=== PATIENT | female | born 1945 | race Caucasian/White ===

== ENCOUNTER → 2017-05-16 | Outpatient (CLI) | payer MEDICARE, BC | END | disposition home or self-care (01) | LOC: LABPAT 12:40 | PROVIDERS: ATTEND Orthopaedic Surgery | DX: Z01.812 Encounter for preprocedural laboratory examination (principal) | CPT/HCPCS: 87070 ==

== ENCOUNTER 2017-06-09 12:05 | Inpatient (IN) | payer MEDICARE, BC ==
[2017-06-03 09:27] VITALS: BMI 34.9
--- NOTE | 2017-06-08 10:08 | HP ---
HISTORY AND PHYSICAL Surgery is scheduled for 06/09/2017. Elida Michelle is a 71-year-old patient seen with symptomatic right knee osteoarthritis. After we discussed treatment options. She elected to proceed with right total knee arthroplasty. Consent regarding the procedure was obtained. Medical clearance was provided by Dr. Rosas. PAST MEDICAL HISTORY: Hypertension, gastroesophageal reflux disease, asthma. PAST SURGICAL HISTORY: section, left total knee arthroplasty. DAILY MEDICATIONS: Singular, Zantac, aspirin, Effexor, Breo inhaler, metoprolol, sjrc-sbi-pchaiss vitamins. ALLERGIES: CODEINE, LANACANE, MONISTAT, SURGICAL TAPE. SOCIAL HISTORY: Patient denies tobacco use. PHYSICAL EXAMINATION: Evaluation right knee: Range of motion 0-120 degrees. Mild intra-articular effusion. Tenderness medial joint line. Crepitance along the medial and patellofemoral compartments with range of motion. Pain with patellofemoral compression. Ligaments stable. Hip rotation without pain. Distal neurovascular exam intact. Right knee radiographs revealed severe medial and moderate patellofemoral compartment osteoarthritis. IMPRESSION: Right knee osteoarthritis. PLAN: Right total knee arthroplasty. MMODL / IJN: [id number] /
[~2017-06-09 12:05] MED LIST: ACETAMINOPHEN TAB 500 MG TAB PO ONE; DEXAMETHASONE SOD PHOSPHATE 10 MG/ML 1 ML VIAL IV ONE; HYDROmorphone 1 MG/ML 1 ML SYRINGE IVP PRN; LACTATED RINGERS 1,000 ML IV SCH; MELOXICAM 7.5 MG TAB PO ONE; MIDAZOLAM 2 MG/2 ML VIAL IV PRN; ONDANSETRON 4 MG/2 ML VIAL IVP ONE; TRANEXAMIC ACID 1,000 MG in SODIUM CHLORIDE 0.9% 100 ML IVPB ONE; ceFAZolin IN SWFI 2 GM/20 ML SYRINGE IVP ONE
[2017-06-09] MEDS ORDERED: LACTATED RINGERS 1,000 ML IV ONE ×3 (12:35→17:47)
[2017-06-09] MEDS: VANCOMYCIN 1,500 MG in SODIUM CHLORIDE 0.9% 250 ML IVPB ONE ×2 (12:45→15:48)
[2017-06-09 12:46] LABS: Glucose,Whole Blood 92 mg/dL (75-99)
[2017-06-09] MEDS ORDERED: fentaNYL (PF) 50 MCG/ML 2 ML AMP IV ONE (13:53)
[2017-06-09] MEDS ORDERED: MIDAZOLAM 2 MG/2 ML VIAL IV ONE (14:04)
[2017-06-09] MEDS ORDERED: ROPIVACAINE 1,100 MG, SODIUM CHLORIDE 0.9% 330 ML MISCELLANE PRN ×2 (14:18)
--- NOTE | 2017-06-09 14:20 | P.ONQ ---
Anesthesiology Proc Note - PNB - Peripheral Nerve Block Performed Right Adductor Canal Infusion Time Out Performed: Yes (6152) Procedure Start Time: 13:54 Procedure Stop Time: 14:11 Indication: Acute Post-Operative Pain, Requested by physician Specifically requested for management of pain by DrJanell: Percy Hess Sedation Type: Sedate with meaningful contact maintained Preparation: Sterile Prep Position: Supine Needle Types: [place] Needle Size: 80mm (3") Needle Gauge: 20 Technique: Ultrasound Injectate: 0.5% Ropivacaine (see comment for volume) (20cc) Blood Aspirated: No Pain Paresthesia on Injection Noted: No Resistance on Injection: Normal Events: Uneventful and Well Tolerated
[2017-06-09] MEDS ORDERED: ROPIVACAINE 246.25 MG, EPINEPHrine 0.5 MG, KETOROLAC 30 MG, cloNIDine HCL/PF 80 MCG, WA... MISCELLANE ONE ×5 (15:45)
[2017-06-09] MEDS ORDERED: fentaNYL (PF) 50 MCG/ML 2 ML AMP ONE (16:11)
[2017-06-09] MEDS ORDERED: SODIUM CHLORIDE 0.9% 100 ML BAG ONE (16:11)
[2017-06-09] MEDS ORDERED: MIDAZOLAM 2 MG/2 ML VIAL ONE (16:11)
[2017-06-09] MEDS ORDERED: TRANEXAMIC ACID 1,000 MG/10 ML VIAL ONE (16:11)
[2017-06-09] MEDS ORDERED: PROPOFOL 10 MG/ML 20 ML VIAL IV ONE (16:11)
[2017-06-09] MEDS ORDERED: PHENYLEPHRINE-0.9% NACL SYG 1 MG/10 ML SYRINGE ONE (16:11)
[2017-06-09] MEDS ORDERED: ceFAZolin 3,000 MG in SODIUM CHLORIDE 0.9% IRRIGATIO 3,000 ML IRRIGATION ONE (16:48)
[2017-06-09] MEDS ORDERED: HYDROmorphone 1 MG/ML 1 ML SYRINGE IVP PRN ×2 (18:21)
[2017-06-09] MEDS ORDERED: HYDROcodone/APAP 7.5-325MG 1 EACH TAB PO PRN (18:21)
[2017-06-09] MEDS ORDERED: NALOXONE 0.4 MG/ML 1 ML VIAL IV PRN (18:21)
[2017-06-09] MEDS ORDERED: ONDANSETRON 4 MG/2 ML VIAL IVP PRN (18:21)
[2017-06-09] MEDS ORDERED: hydrOXYzine PAMOATE 25 MG CAP PO PRN (18:21)
--- NOTE | 2017-06-09 18:21 | P.OP ---
Date of Procedure: 06/09/17 Preoperative Diagnosis: 71-year-old patient seen was symptomatically right knee osteoarthritis. After treatment options were discussed, she elected to proceed with right total knee arthroplasty Postoperative Diagnosis: Right knee osteoarthritis Procedure(s) Performed: Right total knee arthroplasty Implants: 1. Crys persona size 8 right narrow cruciate retaining cemented femur 2. Crys persona size E right cemented tibia 3. Crys persona 13 mm medial congruent polyethylene tibial insert 4. Crys persona 35 mm all polyethylene cemented patella Anesthesia: regional (Adductor canal catheter), local, spinal Surgeon: Percy Hess Dice Manager #1: Balaji Todd Estimated Blood Loss (ml): 75 Pathology: other (Bone) Condition: stable Disposition: PACU Indications for Procedure: 71-year-old patient seen symptomatic right knee osteoarthritis. After treatment options were discussed, she elected to proceed with total knee arthroplasty. Operative Findings: see description of procedure Description of Procedure: Patient was taken to the operative suite after having an adductor canal catheter placed by the department of anesthesia. Patient underwent a spinal anesthetic by the department of anesthesia. Patient was given preoperative IV intake antibiotics and TXA. A well-padded tourniquet was placed about the [] lower extremity. The lower extremity was then prepped and draped in the normal sterile orthopedic fashion. The extremity was elevated, a tourniquet was insufflated to 350. A standard anterior incision was made sharply through skin. Dissection was taken down through the subcutaneous soft tissues down to the extensor mechanism. A medial arthrotomy was performed, patella was everted and knee was flexed. There was advanced osteoarthritis noted. A proximal tibial cutting guide was positioned. Proximal tibial cut was made. A distal intramedullary femoral cutting guide was positioned, distal femoral cut made. We placed the appropriate sizing guide and selected the appropriate size. A distal 4-in-1 femoral cutting block was positioned, distal femoral cuts were made. We now placed a trial femoral component into position, along with an appropriate size tibial tray and insert. We now took the knee through range of motion and had full extension good flexion and good overall soft tissue balance noted. The patella was everted and a flush cut made with patellar quad tendon. We templated the patella, appropriate drill holes were made. An appropriate trial patella was positioned, knee was taken through full range of motion with the patella tracking very nicely. The trial patella was removed. Drill holes were made through the femoral component. All trial components were removed after marking off the appropriate rotation of the tibia. Retractors were now positioned along the proximal tibia. An appropriate keel punch was made with the appropriate size tibial guide. At this point appropriate size implants were chosen and opened. The joint was irrigated copiously with pulse lavage mechanical irrigation. The deep soft tissues were infiltrated with local analgesic. We mixed antibiotic methylmethacrylate. Once the methyl methacrylate was ready, the tibial component was cemented into place removing any excess methylmethacrylate. The femoral component was cemented into place removing the removing any excess methylmethacrylate. We then inserted the appropriate size polyethylene tibial insert. We made sure that it was locked into position. We took the knee into full extension, and then back in a flexion making sure we had removed any excess methylmethacrylate. The patellar component was then cemented down and secured with clamp. Excess methylmethacrylate removed. We kept the knee in full extension, patellar clamp in position until methylmethacrylate had hardened. Once it had hardened the patellar clamp was removed. The knee was taken through full range of motion. The patella tracked nicely. There was good soft tissue balancing. The tourniquet was now released. Additional hemostasis was achieved via electrocautery. A second gram of TXA was given. The wound was irrigated with pulse lavage mechanical irrigation. The superficial soft tissues were infiltrated with local analgesic. The extensor mechanism was repaired with Vicryl. We checked the repair with range of motion and it was stable. The subcutaneous soft tissues were repaired with Vicryl in layers. The skin was approximated with pernio/Dermabond. Sterile dressings were applied followed by loose web roll and Vj bandage. The patient was transferred to a bed, and taken to recovery in stable and satisfactory condition. Andrea LANCE assisted with the procedure.
--- NOTE | 2017-06-09 18:47 | XR ---
EXAMINATION TYPE: XR knee limited RT DATE OF EXAM: 06/09/2017 COMPARISON: NONE HISTORY: Postop TECHNIQUE: 2 views FINDINGS: There is a right knee prosthesis. Components appear in anatomic position. There are anterio r skin martir. IMPRESSION: Right knee prosthesis without sign of a complicating process.
[2017-06-09] MEDS ORDERED: cloNIDine HCL 0.2 MG TAB PO PRN (19:37)
[2017-06-09] MEDS: SYMBICORT 160-4.5 MCG INHALER INHALATION SCH (20:02)
[2017-06-09] MEDS: CALCIUM CARB-VIT D 500MG-200UN 1 EACH TAB PO SCH (20:53)
[2017-06-09] MEDS: FAMOTIDINE 20 MG TAB PO SCH ×2 (20:54→20:56)
[2017-06-09] MEDS: MONTELUKAST 10 MG TAB PO SCH (20:54)
[2017-06-09] MEDS: METOPROLOL SUCCINATE (ER) 100 MG TAB.ER.24H PO SCH (20:54)
[2017-06-09] MEDS: traMADol 50 MG TAB PO SCH (20:54)
[2017-06-09] MEDS: SENNOSIDES-DOCUSATE SODIUM 1 EACH TAB PO SCH (20:55)
[2017-06-09] MEDS: ENOXAPARIN 30 MG/0.3 ML SYRINGE SQ SCH (20:58)
[2017-06-09] MEDS: LACTATED RINGERS 1,000 ML IV SCH (22:20)
[2017-06-09] MEDS: HYDROmorphone 1 MG/ML 1 ML SYRINGE IVP PRN (22:49)
[2017-06-10] MEDS: HYDROmorphone 1 MG/ML 1 ML SYRINGE IVP PRN (02:21)
[2017-06-10] MEDS: HYDROcodone/APAP 7.5-325MG 1 EACH TAB PO PRN ×3 (04:23→18:45)
[2017-06-10] MEDS: LACTATED RINGERS 1,000 ML IV SCH ×2 (06:14→13:12)
[2017-06-10 07:26] LABS: Basophils % (A) 0 %; CH 29.3; CHCM 32.1; Eosinophils % (A) 0 %; HCT 39.7 % (34.0-46.0); HDW 2.36; HGB 12.4 gm/dL (11.4-16.0); Luc # (Auto) 0.09; Luc % (Auto) 1; Lymphocytes # (A) 1.3 k/uL (1.0-4.8); Lymphocytes % (A) 8 %; MCH 28.6 pg (25.0-35.0); MCHC 31.2 g/dL (31.0-37.0); MCV 91.7 fL (80.0-100.0); Monocytes # (A) 0.6 k/uL (0-1.0); Monocytes % (A) 3 %; Neutrophils # (A) 14.4 k/uL (1.3-7.7); Neutrophils % (A) 88 %; RBC 4.33 m/uL (3.80-5.40); RDW 12.9 % (11.5-15.5); WBC 16.4 k/uL (3.8-10.6); WBC (Perox) 17.51
--- NOTE | 2017-06-10 07:26 | CONS ---
CONSULTATION DATE OF CONSULTATION: 06/09/17 REASON FOR CONSULTATION: Medical management requested by Dr. Hess. CONSULTATION: This is a very pleasant, 71-year-old patient of Dr. Rosas who has undergone a right total knee arthroplasty. Some nausea was present early from getting pain medications. No chest pain or short of breath. Chronic stable medical conditions include asthma, GERD, hyperlipidemia, hypertension osteoarthritis and depression. Denies any cardiac history. REVIEW OF SYSTEMS: CONSTITUTIONAL: None. HEENT none. Respiratory none. Cardiovascular none. Gastrointestinal heartburn and nausea. Genitourinary none. Musculoskeletal arthritic pain in the hands, lower back, hips. Dermatological, hematologic, lymphatic none. Psychiatry depression controlled. Neurological none. PAST HISTORY: Asthma, GERD, hypertension, hyperlipidemia, osteoarthritis of the hands, back, hip, depression. PAST SURGICAL HISTORY: Breast surgery, , left knee replacement, breast biopsy. SOCIAL HISTORY: No smoking. Glass of wine daily. Lives by herself. FAMILY HISTORY: Breast cancer. HOME MEDICATIONS: 1. Veramyst 1 spray each nostril daily p.r.n. 2. Naproxen 220 mg b.i.d. p.r.n. 3. 1 puff daily. 4. Catapres 0.2 mg p.o. q.6h p.r.n. 5. Norvasc 10 mg p.o. daily. 6. CO Q 10, 2 mg p.o. daily. 7. Zantac 300 mg p.o. q.h.s. 8. Multivitamin 1 tab p.o. daily. 9. Singulair 10 mg p.o. q.h.s. 10.Toprol-XL 100 mg p.o. q.h.s. 11.Vitamin D3 2000 units p.o. daily. 12.Calcium, vitamin D 2 tablets p.o. q.h.s. 13.Aspirin 81 mg p.o. daily. ALLERGIES: BENZETHONIUM, BENZOCAINE. CODEINE. ECONAZOLE. SURGICAL TAPE. PHYSICAL EXAMINATION: Temperature 97.3 pulse 84, respirations 16. Blood pressure 120/59, pulse ox 95%. GENERAL: Well built, BMI 34.9. Lying in bed, tired appearing. Eyes pupils equal. Conjunctivae normal. HEENT: Oral cavity normal. Neck JVD not raised. Mass not palpable. Respiratory effort lungs fair entry. Cardiovascular first and second sounds, no edema. ABDOMEN: Soft, nontender. Liver and spleen not palpable. Lymphatic no lymph nodes palpable in neck or axillae. Psychiatry alert and oriented times three. Mood and affect normal. Neurological pupils are equal. Cranial nerves grossly intact. Power and sensation grossly intact. EXTREMITIES: Right knee in a dressing. INVESTIGATIONS: Accu-Cheks are noted. ASSESSMENT: 1. Right total knee arthroplasty. 2. Obesity; BMI 34.9. 3. Mild intermittent asthma. 4. Gastroesophageal reflux disease. 5. Hyperlipidemia. 6. Essential hypertension. 7. Primary osteoarthritis especially of the hands, back and hip. 8. Depression not otherwise specified. 9. Nausea as a side effect of pain medication. PLAN: Home medications are resumed. The patient is on Lovenox for DVT prophylaxis. Care was discussed with the patient. Questions were answered. The patient is also getting antiemetics. Thank you Dr. Hess. Copy to Dr. Shelby Rosas. MMJUANL / BLASN: [id number] /
[2017-06-10] MEDS: traMADol 50 MG TAB PO SCH ×4 (08:30→20:26)
[2017-06-10] MEDS: SYMBICORT 160-4.5 MCG INHALER INHALATION SCH ×2 (08:44→21:38)
[2017-06-10] MEDS: amLODIPine 10 MG TAB PO SCH (09:32)
[2017-06-10] MEDS: ASPIRIN 81 MG PO SCH (09:33)
[2017-06-10] MEDS: MELOXICAM 7.5 MG TAB PO SCH (09:35)
[2017-06-10] MEDS: FAMOTIDINE 20 MG TAB PO SCH ×2 (09:35→20:26)
[2017-06-10] MEDS: ENOXAPARIN 30 MG/0.3 ML SYRINGE SQ SCH ×2 (09:40→20:25)
[2017-06-10] MEDS: CHOLECALCIFEROL 400 UNIT TAB PO SCH (09:46)
--- NOTE | 2017-06-10 09:59 | P.PN ---
Progress Note - Text Progress Note Date: 06/10/17 71-year-old female is status post right total knee replacement postop day #1. Adductor canal catheter day #2 patient was sitting up in bed comfortable complaints of pain under control have VAS pain score of 0/10 patient denies any issues overnight she had a good night sleep no itching and then no side effects
[2017-06-10] MEDS ORDERED: METOCLOPRAMIDE 5 MG/ML 2 ML VIAL IVP PRN (10:03)
[2017-06-10] MEDS: MULTIVITAMINS, THERA 1 EACH TAB PO SCH (11:22)
--- NOTE | 2017-06-10 12:58 | P.PN ---
Subjective Progress Note Date: 06/10/17 Principal diagnosis: Status post right total knee arthroplasty Patient seen today resting in her hospital bed, she appears to be no acute distress. She denies nausea is morning after breakfast. She's not been up to ambulate. She denies any headaches, chest pain, shortness of breath. Objective - Vital Signs Vital signs: Vital Signs Temp 97.7 F 06/10/17 07:00 Pulse 65 06/10/17 08:59 Resp 15 06/10/17 10:32 BP 117/62 06/10/17 08:59 Pulse Ox 96 06/10/17 07:00 Intake & Output 06/09/17 06/10/17 06/10/17 18:59 06:59 18:59 Intake Total 1401 2250 360 Output Total 275 1030 Balance 1126 1220 360 Intake: IV 1401 Intake, IV Titration 1050 Amount Lactated Ringers 1,000 ml 1050 @ 100 mls/hr IV .Q10H MARTY Rx#:[id number] Oral 1200 360 Output: Urine 200 1030 Estimated Blood Loss 75 Other: Voiding Method Indwelling Catheter Indwelling Catheter - Exam Right lower extremity: Incision is clean, dry, and intact. [place] are in good position. There is minimal soft tissue swelling and ecchymosis surrounding the medial and lateral aspects of the incision. Calf is soft, no tenderness with palpation. Plantar flexion, dorsiflexion, EHL, FHL are intact. Sensory exam to light touch throughout the extremity is intact, dorsal pedis pulses 2+. - Labs CBC & Chem 7: 06/10/17 06:44 Labs: Abnormal Lab Results - Last 24 Hours (Table) 06/10/17 Range/Units 06:44 WBC 16.4 H (3.8-10.6) k/uL Neutrophils # 14.4 H (1.3-7.7) k/uL Assessment and Plan Plan: Assessment: 1. Postop day #1 status post right total knee arthroplasty Plan: 1. Pain control, limit narcotic use due to nausea at this time 2. Continue work with physical therapy and use of CPM 3. Daily dressing changes/ice and elevate 4. Encourage incentive spirometer 5. GI and DVT prophylaxis, continue Pepcid and Lovenox 6. Medical recommendations 7. Discharge planning: Likely discharge to rehab on Time with Patient: Less than 30
--- NOTE | 2017-06-10 12:59 | PN ---
PROGRESS NOTE DATE OF SERVICE: 06/10/2017 PRESENT COMPLAINT: Right knee surgery. INTERVAL HISTORY: Patient is status post right knee surgery. Overall feeling much better. Did work with physical therapy. Some pain is present. No chest pain or shortness of breath. Had her breakfast. REVIEW OF SYSTEMS: Review of systems done for constitutional, cardiovascular, GI, pulmonary, musculoskeletal; relevant findings as above. CURRENT MEDICATIONS: Current medications are reviewed. PHYSICAL EXAMINATION: On examination, afebrile, pulse 62, respiratory 16, blood pressure 108/67, pulse ox 96% on 2 L. GENERAL APPEARANCE: Sitting up, comfortable. EYES: Pupils equal. Conjunctivae normal. NECK: JVD not raised. Mass not palpable. RESPIRATORY: Effort normal. Lungs are clear. CARDIOVASCULAR: First and second sounds normal. No edema. ABDOMEN: Soft, nontender. Liver and spleen not palpable. PSYCHIATRY: Alert and oriented x3. Mood and affect normal. INVESTIGATIONS: White count 16.4, hemoglobin 12.4. ASSESSMENT: 1. Right total knee arthroplasty. 2. Obesity; BMI 34.9. 3. Mild intermittent asthma. 4. Gastroesophageal reflux disease. 5. Hyperlipidemia. 6. Essential hypertension. 7. Primary osteoarthritis especially of the hands, back and hip. 8. Depression, not otherwise specified. 9. Nausea as side effect of pain medication, improved. 10.Leukocytosis likely reactive. Otherwise, the patient has no evidence of infection. He is afebrile. Incision is healing well per Orthopedics. PLAN: Continue current medication and treatment plan. Care was discussed with the patient. MMODL / IJN: [id number] /
[2017-06-10] MEDS: CALCIUM CARB-VIT D 500MG-200UN 1 EACH TAB PO SCH (20:26)
[2017-06-10] MEDS: METOPROLOL SUCCINATE (ER) 100 MG TAB.ER.24H PO SCH (20:26)
[2017-06-10] MEDS: MONTELUKAST 10 MG TAB PO SCH (20:26)
[2017-06-10] MEDS: SENNOSIDES-DOCUSATE SODIUM 1 EACH TAB PO SCH (20:26)
[2017-06-11] MEDS: LACTATED RINGERS 1,000 ML IV SCH ×2 (03:46→12:00)
[2017-06-11] MEDS: SYMBICORT 160-4.5 MCG INHALER INHALATION SCH ×2 (07:38→20:53)
[2017-06-11] MEDS: amLODIPine 10 MG TAB PO SCH (10:21)
[2017-06-11] MEDS: CHOLECALCIFEROL 400 UNIT TAB PO SCH (10:21)
[2017-06-11] MEDS: ASPIRIN 81 MG PO SCH (10:21)
[2017-06-11] MEDS: traMADol 50 MG TAB PO SCH ×4 (10:22→21:47)
[2017-06-11] MEDS: MELOXICAM 7.5 MG TAB PO SCH (10:22)
[2017-06-11] MEDS: FAMOTIDINE 20 MG TAB PO SCH ×2 (10:23→21:46)
[2017-06-11] MEDS: ENOXAPARIN 30 MG/0.3 ML SYRINGE SQ SCH ×2 (10:26→21:46)
[2017-06-11] MEDS: MULTIVITAMINS, THERA 1 EACH TAB PO SCH (12:14)
[2017-06-11] MEDS ORDERED: HYDROcodone/APAP 5-325MG 1 EACH TAB PO PRN (12:36)
--- NOTE | 2017-06-11 12:38 | P.PN ---
Subjective Progress Note Date: 06/11/17 Principal diagnosis: Status post right total knee arthroplasty Patient seen today resting in her hospital bed, she appears to be no acute distress. She continues to have nausea. She denies any headaches, chest pain, shortness of breath. Objective - Vital Signs Vital signs: Vital Signs Temp 97.8 F 06/11/17 09:50 Pulse 76 06/11/17 10:36 Resp 14 06/11/17 08:00 BP 124/60 06/11/17 07:56 Pulse Ox 87 L 06/11/17 07:56 Intake & Output 06/10/17 06/11/17 06/11/17 18:59 06:59 18:59 Intake Total 660 850 Output Total 300 Balance 360 850 Intake: Oral 660 850 Output: Urine 300 Other: Voiding Method Indwelling Catheter Toilet Bedside Commode # Voids 2 - Exam Right lower extremity: Incision is clean, dry, and intact. [place] are in good position. There is minimal soft tissue swelling and ecchymosis surrounding the medial and lateral aspects of the incision. Calf is soft, no tenderness with palpation. Plantar flexion, dorsiflexion, EHL, FHL are intact. Sensory exam to light touch throughout the extremity is intact, dorsal pedis pulses 2+. - Labs CBC & Chem 7: 06/10/17 06:44 Assessment and Plan Plan: Assessment: 1. Postop day #2 status post right total knee arthroplasty Plan: 1. Pain control, hold hydrocodone at this time due to increased nausea. 2. Continue work with physical therapy and use of CPM 3. Daily dressing changes/ice and elevate 4. Encourage incentive spirometer 5. GI and DVT prophylaxis, continue Pepcid and Lovenox 6. Medical recommendations 7. Discharge planning: Discharge to rehab tomorrow Time with Patient: Less than 30
--- NOTE | 2017-06-11 18:54 | P.PN ---
Progress Note - Text Progress Note Date: 06/11/17 DATE OF SERVICE: 06/11/2017 PRESENTING COMPLAINT: Right knee surgery HISTORY OF PRESENT ILLNESS: 71-year-old female status post right knee surgery. INTERVAL HISTORY: 06/11/2017: Lying in bed, appears comfortable. Agreeable to work physical therapy. Has some right knee pain well controlled with current pain management regimen. REVIEW OF SYSTEMS: Done for constitutional ,cardiovascular, GI, pulmonary with relevant findings as above. CURRENT MEDICATIONS [place], Norvasc, aspirin, Symbicort, Catapres, Lovenox 30 mg subcu every 12 hours , Pepcid, Dilaudid, Vistaril, meloxicam, Toprol XL. PHYSICAL EXAM VITAL SIGNS: Temperature 100.0, pulse 76, respirations 14, blood pressure 124/60, oxygen saturation 93 % on room air GENERAL APPEARANCE: Lying in bed, not in distress. EYES: Pupils equal. Conjunctiva normal. NECK: JVD not raised. Mass not palpable. RESPIRATORY: Respiratory effort normal. Lungs clear to auscultation. CARDIOVASCULAR: First and second sounds normal. No edema. ABDOMEN: Soft. Liver and spleen not palpable. No tenderness. No mass palpable. PSYCHIATRY: Alert and oriented x3. Mood and affect normal. MUSCULOSKELETAL: Right knee with dry dressing in place mild swelling noted to surgical area. INVESTIGATIONS: None new ASSESSMENT: -Right total knee arthroplasty. -Obesity, body mass index 34.9. -Mild intermittent asthma. -Gastroesophageal reflux disease. -Hyperlipidemia. -Essential hypertension. -Primary osteoarthritis especially of the hands, back and hip area and -Depression not otherwise specified. -Nausea as a side effect of pain medication, improved -Leukocytosis likely reactive. Otherwise patient has no other evidence of infection. PLAN: Continue current medication and treatment plan. Discharge planning for the next 24-48 hours. Plan of care discussed with patient and they're in agreement. We'll follow. ROOM WORKER statement: Patient was seen and examined by nurse practitioner Lary Osman and all elements of the case discussed with attending Dr. Renae
[2017-06-11] MEDS: SENNOSIDES-DOCUSATE SODIUM 1 EACH TAB PO SCH (21:39)
[2017-06-11] MEDS: MONTELUKAST 10 MG TAB PO SCH (21:46)
[2017-06-11] MEDS: METOPROLOL SUCCINATE (ER) 100 MG TAB.ER.24H PO SCH (21:46)
[2017-06-11] MEDS: CALCIUM CARB-VIT D 500MG-200UN 1 EACH TAB PO SCH (21:46)
--- NOTE | 2017-06-11 22:24 | PN ---
PROGRESS NOTE DATE OF SERVICE: 06/11/2017 ATTENDING NOTE: Patient was seen and examined by me. I discussed with my nurse practitioner, Ms. Osman. The patient is feeling a bit tired, lying in bed. Some pain is present. PHYSICAL EXAMINATION: Temperature 97.8, pulse 76, respirations , blood pressure 124/60. LUNGS: Clear. CARDIOVASCULAR: First and second sounds normal. INVESTIGATIONS: White count 16.5 as of yesterday. ASSESSMENT: Right total knee arthroplasty. Other medical stable conditions. Care was discussed with the patient. Keep a close eye. Follow. MMODL / IJN: [id number] /
[2017-06-12 01:44] VITALS: BP 142/77; TEMP 99.3
[2017-06-12] MEDS: LACTATED RINGERS 1,000 ML IV SCH ×2 (03:05→03:06)
[2017-06-12 07:22] LABS: Basophils % (A) 1 %; CH 28.5; CHCM 32.1; Eosinophils # (A) 0.1 k/uL (0-0.7); Eosinophils % (A) 1 %; HCT 36.1 % (34.0-46.0); HDW 2.32; HGB 11.9 gm/dL (11.4-16.0); Luc # (Auto) 0.06; Luc % (Auto) 1; Lymphocytes # (A) 0.8 k/uL (1.0-4.8); Lymphocytes % (A) 15 %; MCH 29.5 pg (25.0-35.0); MCV 89.3 fL (80.0-100.0); Mean Platelet Volume 7.5; Monocytes # (A) 0.4 k/uL (0-1.0); Monocytes % (A) 7 %; Neutrophils # (A) 3.9 k/uL (1.3-7.7); Neutrophils % (A) 75 %; RBC 4.04 m/uL (3.80-5.40); WBC 5.1 k/uL (3.8-10.6); WBC (Perox) 5.38
[2017-06-12] MEDS: SYMBICORT 160-4.5 MCG INHALER INHALATION SCH (08:13)
[2017-06-12] MEDS ORDERED: HYDROmorphone 0.5 MG/0.5 ML SYRINGE IVP PRN ×3 (08:54→08:55)
[2017-06-12] MEDS: FAMOTIDINE 20 MG TAB PO SCH (09:23)
[2017-06-12] MEDS: amLODIPine 10 MG TAB PO SCH (09:23)
[2017-06-12] MEDS: ASPIRIN 81 MG PO SCH (09:23)
[2017-06-12] MEDS: MELOXICAM 7.5 MG TAB PO SCH (09:24)
[2017-06-12] MEDS: traMADol 50 MG TAB PO SCH ×2 (09:25→14:26)
[2017-06-12] MEDS: CHOLECALCIFEROL 400 UNIT TAB PO SCH (09:25)
[2017-06-12] MEDS: ENOXAPARIN 30 MG/0.3 ML SYRINGE SQ SCH (09:27)
[2017-06-12 10:43] VITALS: PULSE 66; RESP 17
--- NOTE | 2017-06-12 12:39 | P.PN ---
Subjective Progress Note Date: 06/12/17 Principal diagnosis: Status post right total knee arthroplasty Patient seen today resting in her hospital bed, she appears to be no acute distress. Patient's nausea significantly improved. She denies any headaches, chest pain, shortness of breath. Objective - Vital Signs Vital signs: Vital Signs Temp 99.3 F 06/12/17 01:00 Pulse 66 06/12/17 10:32 Resp 17 06/12/17 10:32 BP 142/77 06/12/17 01:00 Pulse Ox 93 L 06/12/17 01:00 Intake & Output 06/11/17 06/12/17 06/12/17 18:59 06:59 18:59 Intake Total 500 180 Balance 500 180 Weight 95.254 kg Intake: Oral 500 180 Other: Voiding Method Bedside Commode Toilet Bedside Commode # Voids 3 1 - Exam Right lower extremity: Incision is clean, dry, and intact. [place] are in good position. There is minimal soft tissue swelling and ecchymosis surrounding the medial and lateral aspects of the incision. Calf is soft, no tenderness with palpation. Plantar flexion, dorsiflexion, EHL, FHL are intact. Sensory exam to light touch throughout the extremity is intact, dorsal pedis pulses 2+. - Labs CBC & Chem 7: 06/12/17 06:31 Labs: Abnormal Lab Results - Last 24 Hours (Table) 06/12/17 Range/Units 06:31 Lymphocytes # 0.8 L (1.0-4.8) k/uL Assessment and Plan Plan: Assessment: 1. Postop day #3 status post right total knee arthroplasty Plan: 1. Pain control, hold hydrocodone at this time due to increased nausea. 2. Continue work with physical therapy and use of CPM 3. Daily dressing changes/ice and elevate 4. Encourage incentive spirometer 5. GI and DVT prophylaxis, continue Pepcid and aspirin 325 mg twice a day 6. Medical recommendations 7. Discharge planning: Discharged to rehab today Time with Patient: Less than 30
--- NOTE | 2017-06-12 12:42 | P.DS ---
Providers Date of admission: 06/09/17 12:05 Expected date of discharge: 06/12/17 Attending physician: Percy Hess Consults: 06/09/17 18:21 Consult Physician Routine Consulting Provider: Isidoro Renae Consult Reason/Comments: Medical management Do you want consulting provider notified?: Yes Primary care physician: Shelby Rosas [facility] Course: Date of admission: 06/09/2017 Date of discharge: 06/12/2017 Admission diagnosis: Status post right total knee arthroplasty Discharge diagnosis: Same Attending physician: Dr. Hess Surgical procedures: Right total knee arthroplasty Brief history: Patient is a 71-year-old female with a history of progressive primary right knee osteoarthritis. At this point patient has failed conservative treatment measures and has opted to proceed with a elective right total knee arthroplasty. Hospital course: Details of patient's surgery can be found in operative report. Patient tolerated the procedure well and was subsequently transported to orthopedic floor. Patient's orthopeidc and medical care was provided daily. Patient had daily laboratory tests performed for evaluation of overall blood counts. Patient had daily physical therapy to include strengthening range of motion as well as education with walker ambulation. Patient had daily CPM usage as part of their physical therapy program. Patient was treated with Lovenox for their postoperative DVT prophylaxis during their inpatient stay. Patient was noted to have a relatively uneventful postoperative course. Patient reported satisfactory pain control with oral pain medications by postoperative day 0. Patient showed satisfactory progress with physical therapy. Patient moved steadily through the program and had no difficulty meeting the goals by postoperative day 3. Given patient's otherwise satisfactory course and having met physical therapy goals, plan is to discharge patient rehab on postoperative day 3. Discharge condition/disposition: Patient will be discharged to rehab in stable condition. Discharge medications: Instructions are given on resumption of patient's normal daily medications per primary care recommendation, in addition patient will be prescribed Hoople 5 mg/325 mg, tramadol 50 mg, Colace 100 mg, Pepcid 20 mg, aspirin 325 mg. Discharge instructions: 1. Wound care and infection precautions, keep incision dry and covered while showering, no lotions, creams, moisturizers. No soaking, tubs, pools, hottubs. Do not scrub over the incision. 2. Weight-bear as tolerated with walker / cane until follow-up. 3. Ice and elevate when necessary. Do not exceed 20 minutes per hour with ice pack. 4. Utilize compression sleeve until seen at first follow up appointment. 5. Visiting nursing care. 6. Home physical therapy including home CPM. 7. Pain meds and anticoagulants per prescription. 8. Pain medication has potential to cause constipation. Increase oral fluid and fiber intake. Contact primary care provider if you have not had a bowel movement within 48 hours after discharge 9. No anti-inflammatory medication until discussed at first post operative visit, this including Motrin, Aleve, Mobic, Diclofena. 10. Follow up in office at 2 weeks postop with Andrea Todd PA-C 11. Follow up with your primary care doctor 7-10 days after discharge. 12. Contact [facility] with any questions, . Procedures: Right total knee arthroplasty Patient Condition at Discharge: Good Plan - Discharge Summary Discharge Rx Participant: No New Discharge Prescriptions: New Aspirin 325 mg PO BID #60 tab Docusate [Colace] 100 mg PO DAILY #30 capsule Famotidine [Pepcid] 20 mg PO DAILY #30 tablet Hydrocodone/Acetaminophen [Hoople 5-325] 1 each PO Q6HR PRN #40 tab PRN Reason: Pain traMADol HCl [Ultram] 50 mg PO Q6H PRN #40 tab PRN Reason: Pain No Action Montelukast [Singulair] 10 mg PO HS Ranitidine HCl [Zantac] 300 mg PO HS Cholecalciferol [Vitamin D3] 200 unit PO DAILY Calcium Carbonate/Vitamin D3 [Calcium 500-Vit D3 600 Tablet] 2 tab PO HS amLODIPine [Norvasc] 10 mg PO DAILY cloNIDine HCL [Catapres] 0.2 mg PO Q6HR PRN PRN Reason: Blood Pressure - High Fluticasone/Vilanterol [Breo Ellipta 200-25 Mcg INH] 1 puff INHALATION RT- DAILY Metoprolol Succinate [Toprol XL] 100 mg PO HS Multivitamins, Thera [Multivitamin (formulary)] 1 tab PO DAILY Ubidecarenone [Co Q-10] 200 mg PO DAILY Veramyst 1 spray EA NOSTRIL DAILY PRN PRN Reason: sob Discharge Medication List Calcium Carbonate/Vitamin D3 [Calcium 500-Vit D3 600 Tablet] 2 tab PO HS [History] Cholecalciferol [Vitamin D3] 200 unit PO DAILY 12/21/16 [History] Montelukast [Singulair] 10 mg PO HS 07/17/16 [History] Ranitidine HCl [Zantac] 300 mg PO HS 07/17/16 [History] Fluticasone/Vilanterol [Breo Ellipta 200-25 Mcg INH] 1 puff INHALATION RT-DAILY 06/03/17 [History] Metoprolol Succinate [Toprol XL] 100 mg PO HS 06/03/17 [History] Multivitamins, Thera [Multivitamin (formulary)] 1 tab PO DAILY 06/03/17 [History ] Ubidecarenone [Co Q-10] 200 mg PO DAILY 06/03/17 [History] Veramyst 1 spray EA NOSTRIL DAILY PRN 06/03/17 [History] amLODIPine [Norvasc] 10 mg PO DAILY 06/03/17 [History] cloNIDine HCL [Catapres] 0.2 mg PO Q6HR PRN 06/03/17 [History] Aspirin 325 mg PO BID #60 tab 06/12/17 [Rx] Docusate [Colace] 100 mg PO DAILY #30 capsule 06/12/17 [Rx] Famotidine [Pepcid] 20 mg PO DAILY #30 tablet 06/12/17 [Rx] Hydrocodone/Acetaminophen [Hoople 5-325] 1 each PO Q6HR PRN #40 tab 06/12/17 [Rx] traMADol HCl [Ultram] 50 mg PO Q6H PRN #40 tab 06/12/17 [Rx] Follow up Appointment(s)/Referral(s): Balaji Todd PAC [PHYSICIAN [employer]] - 2 Weeks Activity/Diet/Wound Care/Special Instructions: Orthopedic Discharge Instructions: 1. Wound care and infection precautions, keep incision dry and covered while showering, no lotions, creams, moisturizers. No soaking, pools, hot tubs. Do not scrub over incision. 2. Weight-bear as tolerated with walker / cane until follow-up. 3. Ice and elevate when necessary. Do not exceed 20 minutes per hour with ice pack. 4. Utilize compression sleeve until seen at first follow up appointment. 5. Visiting nursing care. 6. Home physical therapy including home CPM. 7. Pain meds and anticoagulants per prescription. 8. Pain medication has potential to cause constipation. Increase oral fluid and fiber intake. Contact primary care provider if you have not had a bowel movement within 48 hours after discharge. 9. No anti-inflammatory medication until discussed at first post operative visit, this including Motrin, Aleve, Mobic, Diclofenac. 10. Follow up in office at 2 weeks postop with Andrea Todd PA-C 11. Follow up with your primary care doctor 7-10 days after discharge. 12. Contact [facility] with any questions, . Discharge Disposition: HOME WITH HOME HEALTH SERVICES
[2017-06-12] MEDS: MULTIVITAMINS, THERA 1 EACH TAB PO SCH (12:46)
--- NOTE | 2017-06-12 17:19 | PN ---
PROGRESS NOTE DATE OF SERVICE: June 12, 2017. PRESENTING COMPLAINT: Right knee surgery. INTERVAL HISTORY: Patient is status post right knee surgery, working with therapy. Had some nausea. No chest pain. Chest pain is felt to be from a pain medication. REVIEW OF SYSTEMS: Done for constitutional, cardiovascular, GI, pulmonary, relevant findings as above. CURRENT MEDICATIONS: Reviewed. PHYSICAL EXAMINATION: Temperature 99.3, pulse 84, respiratory rate 16, blood pressure 142/77, pulse ox 93% on room air. General appearance sitting up comfortable. Eyes pupils equal. Conjunctivae normal. Neck JVD not raised. Mass not palpable. Respiratory effort lungs are clear. Cardiovascular first and second sounds normal. No edema. ABDOMEN: Soft, nontender. Liver and spleen not palpable. Psychiatry alert and oriented times three. Mood and affect normal. Musculoskeletal right knee in a dressing. INVESTIGATIONS: White count 5.1, hemoglobin 11.9. ASSESSMENT: 1. Right total knee arthroplasty. 2. Obesity; BMI 34.9. 3. Mild intermittent asthma. 4. Gastroesophageal reflux disease. 5. Hyperlipidemia. 6. Essential hypertension. 7. Primary osteoarthritis especially of the hands, back and hip area. 8. Depression not otherwise specified. 9. Leukocytosis likely reactive, now improved. PLAN: Care was discussed with the patient. Continue current medication and treatment plan. Told to the eat light diet. MMODL / IJN: [id number] /
== END 2017-06-12 15:20 | DRG 470 ==
LOC: 2ORMAIN 12:05 → 3SUR 18:21
PROVIDERS: ADMIT Orthopaedic Surgery; ATTEND Orthopaedic Surgery
PROC: 0SRC0J9 Replacement of Right Knee Joint with Synthetic Substitute, Cemented, Open Approach (ICD-10-PCS; principal; 2017-06-09 16:00)
DX: M17.11 Unilateral primary osteoarthritis, right knee (principal); I10 Essential (primary) hypertension; F32.9 Major depressive disorder, single episode, unspecified; E78.5 Hyperlipidemia, unspecified; E66.9 Obesity, unspecified; D72.829 Elevated white blood cell count, unspecified; J45.20 Mild intermittent asthma, uncomplicated; K21.9 Gastro-esophageal reflux disease without esophagitis; M19.041 Primary osteoarthritis, right hand; M19.042 Primary osteoarthritis, left hand; Z79.82 Long term (current) use of aspirin; Z79.899 Other long term (current) drug therapy; Z80.3 Family history of malignant neoplasm of breast; Z96.652 Presence of left artificial knee joint; Z88.5 Allergy status to narcotic agent; Z88.8 Allergy status to other drugs, medicaments and biological substances
CPT/HCPCS: 85025; 88300; 94640